=== PATIENT | male | born 1980 | race Two or more races ===

== ENCOUNTER 2018-12-05 12:38 | Emergency (ER) | payer OTHER ==
[~2018-12-05] VITALS: Ht 175.3 cm; Wt 78.5 kg
[2018-12-05 12:45] VITALS: BP 130/96; Ht 175.3 cm; Wt 78.5 kg
[2018-12-05 16:12] LABS: AMPHETAMINE QUAL UR NONE DETECTED (See below)
== END 2018-12-05 17:01 | disposition home or self-care (01) ==
LOC: ED 12:38
PROVIDERS: Emergency Medicine
DX: F43.9 Reaction to severe stress, unspecified (principal); G47.00 Insomnia, unspecified; F12.90 Cannabis use, unspecified, uncomplicated
CPT/HCPCS: 82962